=== PATIENT | male | born 1945 | race Caucasian/White ===

== ENCOUNTER 2017-01-26 08:47 | Day surgery (SDC) | payer MEDICARE ==
[~2017-01-26 08:47] MED LIST: Buffered Lidocaine 0.9% SYRIN* 5 ML/SYR SYRINGE INTRADERM ONE; Buffered Lidocaine 0.9% SYRIN* 5 ML/SYR SYRINGE ONE; NS 0.9% 1000 ML* 1,000 ML IV SCH; ceFAZolin 2 GM PREMIX (*) 50 ML IVPB ONE
[2017-01-26] MEDS ORDERED: Midazolam* 1 MG/ML 2 ML VIAL (2 MG) ONE ×3 (09:25→11:03)
[2017-01-26] MEDS ORDERED: fentaNYL* 50 MCG/ML 2 ML VIAL (100 MCG VIAL) ONE (09:25)
[2017-01-26] MEDS ORDERED: Lidocaine 1% MPF wEPI 200,000* 30 ML SDV ONE (09:40)
[2017-01-26] MEDS ORDERED: Mineral Oil Sterile, TOPICAL* 25 ML BTL ONE (09:40)
[2017-01-26] MEDS ORDERED: Bupivacaine 0.25% SDV* 30 ML ONE (09:52)
[2017-01-26] MEDS ORDERED: Propofol* 10 MG/ML 20 ML BTL IV PUSH ONE (10:05)
[2017-01-26] MEDS ORDERED: Famotidine IV* 10 MG/ML 2 ML (20 mg) ONE (10:05)
[2017-01-26] MEDS ORDERED: Lidocaine 2% PF * 5 ML VIAL ONE (10:05)
[2017-01-26] MEDS ORDERED: KETAMINE HCL* 50 MG/ML 10 ML VIAL ONE (10:18)
[2017-01-26] MEDS ORDERED: Ondansetron INJ* 2 MG/ML VIAL IV PRN (11:05)
[2017-01-26] MEDS ORDERED: DiMENhydriNATE IV* 50 MG/ML VIAL IV PUSH PRN (11:05)
[2017-01-26] MEDS ORDERED: Acetaminophen TAB* 325 MG PO PRN (11:05)
[2017-01-26 13:10] VITALS: BP 127/69
== END 2017-01-26 13:10 | disposition home or self-care (01) ==
LOC: OR 08:47
PROVIDERS: ATTEND Plastic Surgery
DX: L57.0 Actinic keratosis (principal); F17.210 Nicotine dependence, cigarettes, uncomplicated; G91.2 (Idiopathic) normal pressure hydrocephalus; Z95.0 Presence of cardiac pacemaker; E11.9 Type 2 diabetes mellitus without complications; E03.9 Hypothyroidism, unspecified; Z79.84 Long term (current) use of oral hypoglycemic drugs; G47.33 Obstructive sleep apnea (adult) (pediatric); F41.9 Anxiety disorder, unspecified; Z85.828 Personal history of other malignant neoplasm of skin
CPT/HCPCS: 88305; 88331; 88332; A9270-GY; J0690; J2001; J2250; J2704; J3010

== ENCOUNTER 2017-10-07 00:09 | Observation (INO) | payer MEDICARE ==
[2017-10-07] MEDS ORDERED: Aspirin 81 mg CHEW TAB* 81 MG TAB.CHEW PO ONE ×2 (00:34→00:43)
[2017-10-07] MEDS ORDERED: NS 0.9% 1000 ML* 1,000 ML IV ONE (00:34)
[2017-10-07] MEDS ORDERED: Metoprolol Tartrate IV* 1 MG/ML 5 ML VIAL IV ONE (00:34)
[2017-10-07] MEDS ORDERED: predniSONE TAB* 20 MG PO ONE (00:43)
[2017-10-07] MEDS ORDERED: Albuterol/Ipratropium NEB.SOL* Albuterol 2.5 MG/Ipratropium 0.5 MG 3 ML INH ONE (00:43)
[2017-10-07 01:06] LABS: ABS Basophils 0.2 10^3/ul (0-0.2); ABS Eosinophils 0.2 10^3/ul (0-0.6); ABS Lymphocytes 2.7 10^3/ul (1.0-4.8); ABS Monocytes 1.2 10^3/ul (0-0.8); ABS Neutrophils 12.6 10^3/ul (1.5-7.7); ABS Nucleated RBC 0 10^3/ul; Eosinophil % 1.1 % (0-6); Hematocrit 45 % (42-52); Hemoglobin 15.2 g/dl (14.0-18.0); Mean Corpuscular HGB Conc 34 g/dl (31-36); Mean Corpuscular Hemoglobin 30 pg (27-31); Mean Corpuscular Volume 89 fL (80-94); Mean Platelet Volume 11.1 um3 (7.4-10.4); Nucleated Red Blood Cells % 0.2; Platelet Count 137 10^3/ul (150-450); Red Blood Count 5.01 10^6/ul (4.0-5.4); Red Cell Distribution Width 13 % (10.5-15); White Blood Count 16.8 10^3/ul (3.5-10.8)
[2017-10-07 01:07] LABS: INR 1.08 (0.77-1.02)
[2017-10-07] MEDS ORDERED: Levofloxacin 750 MG IVPREMIX(* 750 MG/150 ML BAG IVPB ONE (02:26)
[2017-10-07] MEDS ORDERED: Morphine ORAL.SOLN 10 mg* 2 MG/ML UDC 5 ml PO PRN (03:46)
--- NOTE | 2017-10-07 04:44 | ED ---
Feroz Whitaker Jennifer, scribed for Cristobal Cuenca MD on 10/07/17 at 0044 . HPI Chest Pain - HPI Summary HPI Summary: The patient is a 72 year old male who presents with chest pain that began about 3 hours ago. Patient reports the pain is located mid sternal and began when he was just watching TV. He describes it as a tightness and sharp pain that is aggravated by deep breaths. He thought it was indigestion at first but denies reflux. He denies pain in back, neck, and arm, cough, and fever. 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 - History of Current Complaint Chief Complaint: EDChestWallPain Time Seen by Provider: 10/07/17 00:32 Hx Obtained From: Patient Onset/Duration: Started Hours Ago - 3 hours, Still Present, Worse Since Timing: Constant Initial Severity: Moderate Current Severity: Moderate Pain Intensity: 7 Pain Scale Used: 0-10 Numeric Chest Pain Location: Mid Sternal Chest Pain Radiates: No Character: Sharp/Stabbing, Tightness Aggravating Factor(s): Deep Breaths Alleviating Factor(s): Nothing Associated Signs and Symptoms: Positive: Other: - chest pain. NEGATIVE: pain in back, neck, arm, and cough and fever - Additional Pertinent History Primary Care Physician: [id number] - Allergy/Home Medications Allergies/Adverse Reactions: Allergies Allergy/AdvReac Type Severity Reaction Status Date / Time No Known Allergies Allergy Verified 01/26/17 09:07 PMH/Surg Hx/FS Hx/Imm Hx Endocrine/Hematology History: Reports: Hx Diabetes - oral med, Hx Thyroid Disease - partial thyroidectomy 1994 Cardiovascular History: Reports: Hx Hypertension, Hx Pacemaker/ICD - dr lopez seen last week of december 2016 Denies: Hx Angina Respiratory History: Reports: Hx Chronic Obstructive Pulmonary Disease (COPD), Hx Pneumonia, Hx Seasonal Allergies, Hx Sleep Apnea - no cpap GI History: Reports: Hx Gastroesophageal Reflux Disease, Other GI Disorders - frequent diarrhea History: Reports: Other Problems/Disorders - hx bladder cancer Musculoskeletal History: Reports: Hx Arthritis - 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 tonsillectomy as a child. cystoscopy for bladder cancer 1999. partial thyroidectomy 1994 - . pacemaker placement 1990 Hx Anesthesia Reactions: No - Immunization History Date of Tetanus Vaccine: up to date Date of Influenza Vaccine: 2014 Infectious Disease History: No Infectious Disease History: Reports: Hx Hepatitis - hx hep A & B, Hx Shingles Denies: Hx Human Immunodeficiency Virus (HIV), Traveled Outside the [place] in Last 30 Days - Family History Known Family History: Positive: Cardiac Disease, Other - colon cancer - Social History Alcohol Use: None Substance Use Type: Reports: None Hx Tobacco Use: Yes - 2 packs per week Smoking Status (MU): Light Every Day Tobacco Smoker Type: Cigarettes Amount Used/How Often: 1 pack per week for 45 years Length of Time of Smoking/Using Tobacco: 48 years, stopped from [id number] Have You Smoked in the Last Year: Yes Review of Systems Negative: Fever Positive: Chest Pain Negative: Cough Positive: Myalgia - pain in back, neck, arm All Other Systems Reviewed And Are Negative: Yes Physical Exam - Summary Physical Exam Summary: Appearance: Well appearing, no pain distress Skin: warm, dry, reflects adequate perfusion Head/face: scar on scalp, shunt in scalp Eyes: EOMI, HARRIET ENT: dry mucous membranes Neck: supple, non-tender, suprasternal scar, no JVD Respiratory: Diffuse heavy wheezes, tachypnea, breath sounds present Cardiovascular: pacemaker in right chest, RRR, pulses symmetrical Abdomen: non-tender, soft Bowel Sounds: present Musculoskeletal: normal, strength/ROM intact, no lower extremity edema Neuro: normal, sensory motor intact, A&Ox3 Triage Information Reviewed: Yes Vital Signs On Initial Exam: Initial Vitals Temp Pulse Resp BP Pulse Ox 98.4 F 108 22 133/89 94 10/07/17 00:12 10/07/17 00:12 10/07/17 00:12 10/07/17 00:12 10/07/17 00:12 Vital Signs Reviewed: Yes Diagnostics - Vital Signs Vital Signs Temp Pulse Resp BP Pulse Ox 10/07/17 00:22 96 96 10/07/17 00:20 98 174/88 94 10/07/17 00:12 98.4 F 108 22 133/89 94 - Laboratory Lab Results: Lab Results 10/07/17 10/07/17 10/07/17 Range/Units 00:54 00:54 00:54 WBC 16.8 H (3.5-10.8) 10^3/ul RBC 5.01 (4.0-5.4) 10^6/ul Hgb 15.2 (14.0-18.0) g/dl Hct 45 (42-52) % MCV 89 (80-94) fL MCH 30 (27-31) pg MCHC 34 (31-36) g/dl RDW 13 (10.5-15) % Plt Count 137 L (150-450) 10^3/ul MPV 11.1 H (7.4-10.4) um3 Neut % (Auto) 74.9 (38-83) % Lymph % (Auto) 16.0 L (25-47) % Bonner % (Auto) 7.1 H (0-7) % Eos % (Auto) 1.1 (0-6) % Baso % (Auto) 0.9 (0-2) % Absolute Neuts (auto) 12.6 H (1.5-7.7) 10^3/ul Absolute Lymphs (auto) 2.7 (1.0-4.8) 10^3/ul Absolute Monos (auto) 1.2 H (0-0.8) 10^3/ul Absolute Eos (auto) 0.2 (0-0.6) 10^3/ul Absolute Basos (auto) 0.2 (0-0.2) 10^3/ul Absolute Nucleated RBC 0 10^3/ul Nucleated RBC % 0.2 INR (Anticoag Therapy) 1.08 H (0.77-1.02) Sodium 135 L (139-145) mmol/L Potassium 3.9 (3.5-5.0) mmol/L Chloride 99 L (101-111) mmol/L Carbon Dioxide 26 (22-32) mmol/L Anion Gap 10 (2-11) mmol/L BUN 21 (6-24) mg/dL Creatinine 1.05 (0.67-1.17) mg/dL Est GFR ( Amer) 88.8 (>60) Est GFR (Non-Af Amer) 69.0 (>60) BUN/Creatinine Ratio 20.0 (8-20) Glucose 152 H (70-100) mg/dL Lactic Acid (0.5-2.0) mmol/L Calcium 9.4 (8.6-10.3) mg/dL Total Bilirubin 0.50 (0.2-1.0) mg/dL AST 19 (13-39) U/L ALT 17 (7-52) U/L Alkaline Phosphatase 75 (34-104) U/L Troponin I 0.03 (<0.04) ng/mL B-Natriuretic Peptide ( - 100) pg/mL Total Protein 7.8 (6.4-8.9) g/dL Albumin 4.2 (3.2-5.2) g/dL Globulin 3.6 (2-4) g/dL Albumin/Globulin Ratio 1.2 (1-3) Procalcitonin (<0.6) ng/mL 10/07/17 10/07/17 10/07/17 Range/Units 00:54 00:54 00:54 WBC (3.5-10.8) 10^3/ul RBC (4.0-5.4) 10^6/ul Hgb (14.0-18.0) g/dl Hct (42-52) % MCV (80-94) fL MCH (27-31) pg MCHC (31-36) g/dl RDW (10.5-15) % Plt Count (150-450) 10^3/ul MPV (7.4-10.4) um3 Neut % (Auto) (38-83) % Lymph % (Auto) (25-47) % Bonner % (Auto) (0-7) % Eos % (Auto) (0-6) % Baso % (Auto) (0-2) % Absolute Neuts (auto) (1.5-7.7) 10^3/ul Absolute Lymphs (auto) (1.0-4.8) 10^3/ul Absolute Monos (auto) (0-0.8) 10^3/ul Absolute Eos (auto) (0-0.6) 10^3/ul Absolute Basos (auto) (0-0.2) 10^3/ul Absolute Nucleated RBC 10^3/ul Nucleated RBC % INR (Anticoag Therapy) (0.77-1.02) Sodium (139-145) mmol/L Potassium (3.5-5.0) mmol/L Chloride (101-111) mmol/L Carbon Dioxide (22-32) mmol/L Anion Gap (2-11) mmol/L BUN (6-24) mg/dL Creatinine (0.67-1.17) mg/dL Est GFR ( Amer) (>60) Est GFR (Non-Af Amer) (>60) BUN/Creatinine Ratio (8-20) Glucose (70-100) mg/dL Lactic Acid 2.1 H* (0.5-2.0) mmol/L Calcium (8.6-10.3) mg/dL Total Bilirubin (0.2-1.0) mg/dL AST (13-39) U/L ALT (7-52) U/L Alkaline Phosphatase (34-104) U/L Troponin I (<0.04) ng/mL B-Natriuretic Peptide 58 ( - 100) pg/mL Total Protein (6.4-8.9) g/dL Albumin (3.2-5.2) g/dL Globulin (2-4) g/dL Albumin/Globulin Ratio (1-3) Procalcitonin < 0.1 (<0.6) ng/mL 10/07/17 Range/Units 03:33 WBC (3.5-10.8) 10^3/ul RBC (4.0-5.4) 10^6/ul Hgb (14.0-18.0) g/dl Hct (42-52) % MCV (80-94) fL MCH (27-31) pg MCHC (31-36) g/dl RDW (10.5-15) % Plt Count (150-450) 10^3/ul MPV (7.4-10.4) um3 Neut % (Auto) (38-83) % Lymph % (Auto) (25-47) % Bonner % (Auto) (0-7) % Eos % (Auto) (0-6) % Baso % (Auto) (0-2) % Absolute Neuts (auto) (1.5-7.7) 10^3/ul Absolute Lymphs (auto) (1.0-4.8) 10^3/ul Absolute Monos (auto) (0-0.8) 10^3/ul Absolute Eos (auto) (0-0.6) 10^3/ul Absolute Basos (auto) (0-0.2) 10^3/ul Absolute Nucleated RBC 10^3/ul Nucleated RBC % INR (Anticoag Therapy) (0.77-1.02) Sodium (139-145) mmol/L Potassium (3.5-5.0) mmol/L Chloride (101-111) mmol/L Carbon Dioxide (22-32) mmol/L Anion Gap (2-11) mmol/L BUN (6-24) mg/dL Creatinine (0.67-1.17) mg/dL Est GFR ( Amer) (>60) Est GFR (Non-Af Amer) (>60) BUN/Creatinine Ratio (8-20) Glucose (70-100) mg/dL Lactic Acid (0.5-2.0) mmol/L Calcium (8.6-10.3) mg/dL Total Bilirubin (0.2-1.0) mg/dL AST (13-39) U/L ALT (7-52) U/L Alkaline Phosphatase (34-104) U/L Troponin I 0.03 (<0.04) ng/mL B-Natriuretic Peptide ( - 100) pg/mL Total Protein (6.4-8.9) g/dL Albumin (3.2-5.2) g/dL Globulin (2-4) g/dL Albumin/Globulin Ratio (1-3) Procalcitonin (<0.6) ng/mL Result Diagrams: 10/07/17 00:54 10/07/17 00:54 Lab Statement: Any lab studies that have been ordered have been reviewed, and results considered in the medical decision making process. - EKG 0017 Cardiac Rate: Other Rate - Atrial sensed ventricularly paced rhythm at [address] Segment: Non-Specific EKG Interpretation: left axis deviation Re-Evaluation - Re-Evaluation First Eval Re-Evaluation Time: 02:26 Change: Improved Comment: His chest tightnes improved with breathing treatment, but he is still wheezing a little. Patient would like to stay longer. Chest Pain Course/Dx - Course Course Of Treatment: Patient presents with tightness across his anterior chest and difficulty breathing. Resting O2 sat on arrival was 90% on room air. Long- term smoker with diffuse wheezes throughout. Chest tightness improved significantly with breathing treatments and steroids. His wheezing continued but he was no longer hypoxic. Initial troponin is not elevated. EKG is nondiagnostic due to pacemaker. Heart rate has come down however. He still feels short of breath and has objective wheezing and so admission was choice disposition. IV antibiotics given. Hospitalist contacted and will admit the patient. - Chest Pain Differential Diagnosis/HQI/PQRI: Acute NM, ACS, Angina, GI Disease, Lower Respiratory Infection, Pulmonary Edema, Pulmonary Embolism, Other: - COPD exacerbation, hypoxia - Diagnoses Provider Diagnoses: COPD exacerbation, Atypical chest pain - Provider Notifications Discussed Care Of Patient With: Gabrielle Maya Time Discussed With Above Provider: 02:31 Instructed by Provider To: MD Will See In ED Discharge - Sign-Out/Discharge Documenting (check all that apply): Discharge/Admit/Transfer - Discharge Plan Condition: Fair Disposition: ADMITTED TO [facility] - Billing Disposition and Condition Condition: [facility] Disposition: [facility] [place] The documentation as recorded by the Feroz feldman Jennifer accurately reflects the service I personally performed and the decisions made by , Cristobal Cuenca MD.
[2017-10-07] MEDS ORDERED: Levothyroxine TAB* 137 MCG TAB PO SCH (06:00)
[2017-10-07] MEDS ORDERED: Omeprazole CAP* 20 MG PO SCH (07:30)
[2017-10-07] MEDS ORDERED: Enoxaparin(*) 40 MG/0.4 ML SYR SUBCUT SCH (07:30)
--- NOTE | 2017-10-07 07:53 | RAD ---
HISTORY: Chest pain COMPARISONS: February 28, 2016 VIEWS: 1: frontal portable view of the chest at 1:29 AM FINDINGS: LINES AND TUBES: None. CARDIOMEDIASTINAL SILHOUETTE: The cardiac silhouette is mildly enlarged. The cardiomediastinal silhouette is stable from previous examinations.. PLEURA: The costophrenic angles are sharp. No pleural abnormalities are noted. LUNG PARENCHYMA: The lungs are clear. ABDOMEN: The upper abdomen is clear. There is no subphrenic gas. BONES AND SOFT TISSUES: No bone or soft tissue abnormalities are noted. IMPRESSION: MILD CARDIOMEGALY. NO ACTIVE CARDIOPULMONARY DISEASE.
[2017-10-07] MEDS: Albuterol 2.5 MG/3 ML NEB.SOL* (0.083%) INH SCH ×2 (08:28→11:43)
[2017-10-07] MEDS ORDERED: Venlafaxine EXT RELEASE CAP* 75 MG PO SCH (09:00)
[2017-10-07] MEDS ORDERED: Tamsulosin CAP* 0.4 MG PO SCH (09:00)
[2017-10-07] MEDS ORDERED: Atorvastatin* 20 MG TAB PO SCH (09:00)
[2017-10-07] MEDS ORDERED: BuPROPion XL* 300 MG TAB.XL PO SCH (09:00)
--- NOTE | 2017-10-07 09:34 | HP ---
CC: Dr. Armas* HISTORY AND PHYSICAL: DATE OF ADMISSION: 10/07/17 PRIMARY CARE PROVIDER: Dr. Armas. CHIEF COMPLAINT: Chest pain. HISTORY OF PRESENT ILLNESS: Mr. Milian is a 72-year-old male, a long-term smoker, who also has a history of NPH, status post SORT SUPERVISOR shunt placement; COPD; hypothyroidism; depression; BPH, who was seen today in the emergency room for complaints of chest pain. The patient states at approximately 9:00 p.m. on the night prior to admission, he developed severe centrally located chest pain. He states he has had chest pain in the past and has gone away on its own. So, he rested at home. The pain did not go away and in fact worsened. The pain now is almost completely gone. He describes the pain as being in the center of his chest. He states it also hurts to take a deep breath. Denies any cough or sputum production. He denies any sweats or associated nausea. He denies any recent sick contacts, fevers, or chills. PAST MEDICAL HISTORY: 1. Pacemaker for third-degree heart block. 2. OA. 3. NPH, status post SORT SUPERVISOR shunt. 4. Hepatitis A and B in the past. He is unclear if he has been treated in the past. 5. BPH. 6. COPD. 7. GERD. 8. Hypothyroidism. 9. Depression. 10. Spinal stenosis. PAST SURGICAL HISTORY: 1. Mohs surgery x2 on the scalp. 2. SORT SUPERVISOR shunt. 3. TURBT. 4. Permanent pacemaker. 5. Partial thyroidectomy for benign tumor. 6. Tonsillectomy. MEDICATIONS: 1. Spironolactone 25 mg p.o. Wednesday, Wednesday, and Wednesday. 2. Flomax 0.4 mg p.o. daily. 3. Morphine 15 mg p.o. t.i.d. p.r.n. pain. 4. Bupropion XL 300 mg p.o. daily. 5. Lipitor 20 mg p.o. daily. 6. Levothyroxine 137 mcg p.o. daily. 7. Prevacid 30 mg p.o. q.h.s. 8. Clonazepam 0.5 mg p.o. q.h.s. 9. Venlafaxine ER 300 mg p.o. daily. ALLERGIES: No known drug allergies. FAMILY HISTORY: Mom of colon cancer. Dad of myasthenia gravis. SOCIAL HISTORY: The patient is a long-term smoker of at least one-half pack per day for the last 55 years or so. He denies any alcohol use. Denies any illicit drug use. He is a retired realtor. He is not . He has no children. He indicates that his friend, Lizeth Herrera, would be his healthcare proxy. REVIEW OF SYSTEMS: A complete 11-system review of systems is obtained. Pertinent positives and negatives are as per HPI and otherwise negative. PHYSICAL EXAMINATION GENERAL: The patient is a well-developed, elderly male, seen sitting up in the bed, eating a turkey sandwich, in no acute distress. VITAL SIGNS: Blood pressure 148/72, pulse 94, respirations 22, temp 98.4, O2 sat 91% on 2 L. HEENT: Pupils are equal and round. Extraocular muscles are intact. Oropharynx is clear. Oral mucosa is moist. There is no submandibular, cervical , or supraclavicular adenopathy. PULMONARY: Lungs are clear with few bibasilar crackles. Breath sounds are mildly diminished throughout. CARDIAC: Normal S1, S2. Regular rate and rhythm. I do not appreciate any murmurs. ABDOMEN: Bowel sounds are present. Abdomen is soft, nontender, nondistended. MUSCULOSKELETAL: There is no cyanosis or clubbing of the digits. There is full active range of motion of all 4 extremities. NEURO: Cranial nerves II through XII are grossly intact. Sensation is intact to light touch throughout. Strength is 5/5 and symmetric, both upper and lower extremities bilaterally. PSYCH: The patient is alert. He is oriented x3. Affect appears appropriate. SKIN: Warm and dry. There are no rashes. The patient does have significant varicose veins to the bilateral lower extremities. DIAGNOSTIC STUDIES/LAB DATA: WBC 16.8, hemoglobin 15.2, hematocrit 44, platelets 137. INR 1.08. Sodium 135, potassium 3.9, chloride 99, CO2 26, BUN 21, creatinine 1.05, glucose 152, lactic acid 2.1, calcium 9.4. Bilirubin 0.5, AST 19, ALT 17, alk phos 75. Troponin 0.03. BNP 58. Albumin 4.2. Chest x-ray reveals low lung volumes, but appears generally clear to my interpretation. EKG reveals a paced rhythm. ASSESSMENT AND PLAN: Mr. Milian is a 72-year-old male with a history of chronic obstructive pulmonary disease with ongoing tobacco abuse, type 2 diabetes - diet controlled, gastroesophageal reflux disease, hypothyroidism, and depression, who presents to the emergency room with complaints of chest pain and is found to be borderline hypoxic. 1. Chest pain. The patient will be admitted and ruled out for an acute coronary syndrome, serial troponins. Chemical nuclear stress test has been ordered to evaluate for ischemia. 2. Probable chronic obstructive pulmonary disease exacerbation. The patient reportedly was diffusely wheezy on exam by the ER provider. I hear no wheezing at this point though he has received 2 nebulizer treatments and steroids. The patient is stating that he is feeling quite a bit better since initiating that therapy. The patient is not on any inhaler therapy for his diagnosis of chronic obstructive pulmonary disease. He will be started on nebulizer treatments every 4 hours while awake, prednisone 40 mg daily, and we will treat with Levaquin 500 mg p.o. daily. I will add a procalcitonin on to the labs drawn in the emergency room given his elevated white blood cell count of 16.8. 3. Benign prostatic hyperplasia. Continue Flomax. 4. Type 2 diabetes. We will continue diabetic diet. Most recent hemoglobin A1c was 6.4% in April 2017. 5. Hypothyroidism. The patient's most recent TSH in April 2017 was in good range. He will continue on his usual dose of Synthroid. 6. Normal pressure hydrocephalus. This is stable. 7. Depression. Continue bupropion and venlafaxine. 8. DVT prophylaxis. According to the Adult Thrombosis Prophylaxis Risk Factor Assessment Guide, the patient has a total risk factor score of 6 making him the highest risk. He will be placed on Lovenox 40 mg subcutaneous daily for his prophylaxis. 9. Code status is DNR. TIME SPENT: Sixty-five minutes was spent admitting this patient. [id number]/[facility] #: [id number] KAYLA
[2017-10-07] MEDS ORDERED: Regadenoson* 0.4 MG/5 ML SYRINGE ONE (09:51)
[2017-10-07] MEDS ORDERED: Aminophylline IV* 25 MG/ML 10 ML VIAL ONE (10:02)
--- NOTE | 2017-10-07 11:10 | PN ---
Subjective Date of Service: 10/07/17 Interval History: Mr. Milian reports feeling much better today. He denies chest pain. He feels that his breathing may be a bit more labored than usual but does not impede his activity. He is tolerating oral intake well and denies nausea or abdominal pain. Objective Active Medications: Albuterol (Ventolin 2.5 Mg/3 Ml Neb.Karey*) 2.5 mg INH [id number] [facility]WAKE [facility] Atorvastatin Calcium (Lipitor*) 20 mg PO DAILY LEANN Bupropion HCl (Bupropion Xl*) 300 mg PO QAM [facility] Clonazepam (Klonopin Tab(*)) 0.5 mg PO QPM [facility] Enoxaparin Sodium (Lovenox(*)) 40 mg SUBCUT Q24H LEANN Levofloxacin (Levaquin Tab*) 500 mg PO Q24H [facility] Levothyroxine Sodium (Synthroid Tab*) 137 mcg PO QAM@0600 [facility] Morphine Sulfate (Morphine Oral.Soln 10 Mg*) 15 mg PO TID PRN Omeprazole (Prilosec Cap*) 20 mg PO DAILY@0730 [facility] Prednisone (Deltasone Tab*) 40 mg PO DAILY [facility] Spironolactone (Aldactone Tab*) 25 mg PO MOWEFR [facility] Tamsulosin HCl (Flomax Cap*) 0.4 mg PO DAILY [facility] Venlafaxine HCl (Effexor Xr Cap*) 300 mg PO QAM [facility] Vital Signs: Temp Pulse Resp BP Pulse Ox 97.9 F 87 16 149/68 95 10/07/17 07:37 10/07/17 08:30 10/07/17 08:30 10/07/17 07:37 10/07/17 08:30 Oxygen Devices in Use Now: None Appearance: Male sitting up in bed in lunch in NAD Eyes: No Scleral Icterus Ears/Nose/Mouth/Throat: Mucous Membranes Moist Neck: Trachea Midline Respiratory: Symmetrical Chest Expansion and Respiratory Effort, - - Expiratory wheezing bilaterally, good aeration Cardiovascular: NL Sounds; No Murmurs; No JVD, No Edema Abdominal: NL Sounds; No Tenderness; No Distention Extremities: No Edema Skin: No Rash or Ulcers Neurological: Alert and Oriented x 3, NL Muscle Strength and Tone Nutrition: Taking PO's Result Diagrams: 10/07/17 00:54 10/07/17 00:54 Additional Lab and Data: . Assess/Plan/Problems-Billing Assessment: Mr. Milian is a 72 yo M with a PMH of pacemaker for third degree heart block , smoking, NPH s/p GOVERNOR ASSEMBLER HYDRAULIC shunt, and COPD who was admitted on 10/07/17 with chest pain. - Patient Problems (1) Chest pain Comment: - Trop 0.03 x 3. EKG with paced rhythm. - Stress test high risk but not significantly changed from 2016. In 2016 he also had a cardiac cath showing no significant coronary artery disease. Reviewed case with Alberto Rueda who agrees and notes that patient can follow up with Dr. Ferreira outpatient for echocardiogram for better evaluation of EF ( EF lower on the stress test, but this is less reliable). Patient has no evidence of CHF. (2) COPD (chronic obstructive pulmonary disease) Comment: - Remains somewhat wheezy but not hypoxic - Continue prednisone, albuterol. - No evidence of pneumonia, stop levaquin. (3) Hypertension Comment: - SBP 140s. - Continue spironolactone. (4) CAD (coronary artery disease) Comment: - Continue atorvastatin. (5) Hypothyroidism Comment: - Continue levothyroxine. (6) Depression Comment: - Continue venlafexine, bupropion. - Continue clonazepam for anxiety. (7) Spinal stenosis SNOMED Code(s): 90522691 Comment: - Continue chronic morphine therapy (8) DVT prophylaxis Comment: - Lovenox. (9) DNR (do not resuscitate) Comment: Status and Disposition: OBV. Discharge to home.
--- NOTE | 2017-10-07 11:33 | RAD ---
Edited for charges. INDICATION: LEFT bundle branch block. Chest pain, shortness of breath, diabetic , obesity, tobacco use. COMPARISON: March 05, 2016 TECHNIQUE: 10.670 mCi of Tc-99m Myoview were administered IV. SPECT images of the heart were obtained. Later on the same day. Under the direction of Dr. Dominguez, the patient was given an IV injection of a pharmacologic stress agent. Subsequently, the patient was given an IV injection of 25.400 mCi Tc-99m Myoview. SPECT images of the heart were obtained and a gated wall motion study was performed. No CT for attenuation correction performed due to body habitus/range of motion of the arms. FINDINGS: Gated wall motion images were obtained at stress and demonstrate diffuse hypokinesia and akinesia at the apical and mid segments of the inferior wall. The calculated left ventricular ejection fraction is 30 % at stress. Estimated LEFT ventricular end diastolic volume is 107 mL. TID 0.95. Large fixed perfusion defect involving the inferior wall from the apex through the base with extension to involve the posterior aspect of the septum and lateral wall. No stress-induced reversible perfusion defects evident. IMPRESSION: 1. Severely decreased estimated LEFT ventricular ejection fraction of 30% decreased from 43% on the 2016 exam. Worsening of generalized hypokinesia compared with the 2016 exam. 2. 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 3. No stress-induced ischemia evident. ASSESSMENT: High risk based on nuclear portion. Based on imaging criteria from ACC/AHA 2002 Guideline Update for the Management of Patients With Chronic Stable Angina Table 23. Noninvasive Risk Stratification. MTDD
[2017-10-07] MEDS ORDERED: Albuterol 2.5 MG/3 ML NEB.SOL* (0.083%) INH PRN (11:47)
[2017-10-07 13:28] VITALS: BP 133/72
[2017-10-07] MEDS ORDERED: clonazePAM TAB(*) 0.5 MG PO SCH (18:00)
[2017-10-08] MEDS ORDERED: Levofloxacin TAB* 500 MG PO SCH (09:00)
[2017-10-08] MEDS ORDERED: Spironolactone TAB* 25 MG PO SCH (09:00)
[2017-10-08] MEDS ORDERED: predniSONE TAB* 20 MG PO SCH (09:00)
--- NOTE | 2017-10-08 13:33 | DS ---
AMENDED REPORT NOW INCLUDES COSIGNER DESIGNATION - ESIGNED BEFORE ADJUSTMENT CC: Dr. Armas * [facility] MEDICINE DISCHARGE SUMMARY: DATE OF ADMISSION: 10/07/17 DATE OF DISCHARGE: 10/07/17 PRIMARY CARE PROVIDER: Dr. Armas. ATTENDING PHYSICIAN: Dr. Isabela Glasgow * (dictation provided by Meme Reese NP ). PRIMARY DIAGNOSES: 1. Chronic obstructive pulmonary disease exacerbation. 2. Chest pain. SECONDARY DIAGNOSES: 1. Pacemaker for third-degree heart block. 2. Osteoarthritis. 3. Normal pressure hydrocephalus status post HAND BRAILLE TRANSCRIBER shunt. 4. History of hepatitis A and B in the past. 5. Benign prostatic hyperplasia. 6. Chronic obstructive pulmonary disease. 7. Gastroesophageal reflux disease. 8. Hypothyroidism. 9. Depression. 10. Spinal stenosis. 11. Non-ischemic cardiomyopathy. PAST SURGICAL HISTORY: Mohs surgery x2 on the scalp and HAND BRAILLE TRANSCRIBER shunt and TURP and permanent pacemaker, partial thyroidectomy for benign tumor and tonsillectomy. MEDICATIONS AT THE TIME OF DISCHARGE: 1. Prednisone 40 mg taper. 2. Albuterol 1 to 2 puffs q. 4 hours p.r.n. shortness of breath. 3. Spironolactone 25 mg p.o. Wednesday, Wednesday and Wednesday. 4. Flomax 0.4 mg p.o. daily. 5. Morphine 15 mg p.o. t.i.d. p.r.n. pain. 6. Bupropion XL 300 mg p.o. daily. 7. Lipitor 20 mg p.o. daily. 8. Levothyroxine 137 mcg p.o. daily. 9. Prevacid 30 mg p.o. q.h.s. 10. Clonazepam 0.5 mg p.o. q.h.s. 11. Venlafaxine ER 300 mg p.o. daily. HOSPITAL COURSE: Mr. Milian is a 72-year-old male with a past medical history of non-ischemic cardiomyopathy with pacemaker for third-degree heart block, who presented to the hospital with chest pain on 10/07/17, please see dictated H and P from Dr. Gabrielle Maya for complete details. In brief, the emergency room physicians reported that the patient was quite wheezy and responded well to nebulizer treatment as well as steroids. At the time of examination from the hospitalist team, the patient stated he was chest pain free Mr. Milian's workup included 3 troponins all of which were 0.03. His chest x-ray showed no acute process. His labs were remarkable only for white blood cell count of 16.8. His procalcitonin however was less than 0.1. Mr. Milian underwent a stress test today, which was read as follows: "Severely decreased estimated left ventricular ejection fraction of 30%, decreased from 43% on the 2016 exam, worsening of generalized hypokinesis compared with the 2016 exam, large infarct primarily involving the inferior wall with associated akinesis without significant change, no stress-induced ischemia is evident, high risk on nuclear portion." Because of this, I did review the record from 2016 when the patient was admitted, which showed that he had an abnormal stress test and went on for cardiac catheterization, which showed no significant coronary artery disease. I also reviewed the case with Dr. Dominguez who also reviewed the record and felt that this stress test was not a significant change from previous and that Mr. Milian, based on his negative workup, would be appropriate to follow up with Dr. Ferreira outpatient. It is suspected more likely than result of cardiac ischemia that the patient's chest discomfort was related to COPD exacerbation based on wheezing heard both at the time of admission and today. Despite the wheezing, the patient is not hypoxic and our plan will be to treat for COPD exacerbation with prednisone and albuterol. The patient is also instructed to follow up closely with Dr. Armas regarding possible addition of other inhalers for mild COPD. DISPOSITION: Home. DIET: Low fat, low salt. ACTIVITY: As tolerated. FOLLOWUP PLAN: 1. Please follow up with Dr. Armas in the next 1 to 2 weeks regarding COPD and chronic comorbidities. 2. Please follow up with Dr. Ferreira regarding non-ischemic cardiomyopathy and was suggested for echocardiogram outpatient. TIME SPENT: Approximately 60 minutes was spent on the discharge of this patient , more than half the time was spent with the patient at the bedside reviewing the events leading up to this hospitalization and during this hospitalization, performing the physical examination, and reviewing the plan of care. MEME REESE NP [id number]/[facility] #: [id number] KAYLA
== END 2017-10-07 15:16 | disposition home or self-care (01) ==
LOC: ED 00:09 → MEDTELE 03:40
PROVIDERS: ADMIT Hospitalist; ATTEND Internal Medicine
DX: J44.1 Chronic obstructive pulmonary disease with (acute) exacerbation (principal); R07.9 Chest pain, unspecified; Z95.0 Presence of cardiac pacemaker; M19.90 Unspecified osteoarthritis, unspecified site; G91.9 Hydrocephalus, unspecified; N40.0 Benign prostatic hyperplasia without lower urinary tract symptoms; K21.9 Gastro-esophageal reflux disease without esophagitis; E03.9 Hypothyroidism, unspecified; F32.9 Major depressive disorder, single episode, unspecified; I42.9 Cardiomyopathy, unspecified; Z79.899 Other long term (current) drug therapy; F17.210 Nicotine dependence, cigarettes, uncomplicated
CPT/HCPCS: 36415; 71045; 78452; 80053; 83605; 83880; 84145; 84484; 85025; 85610; 93005; 93017; 94640; 96365; 96372; 96375; 99285; 99406; A9270-GY; A9502; G0378; J0280; J1650; J2785; J3490; J7512

== ENCOUNTER 2023-10-04 12:21 | Inpatient (IN) ==
[2023-10-04 13:06] LABS: ABS Eosinophils 0.2 10^3/uL (0.0-0.5); ABS Lymphocytes 1.7 10^3/uL (1.0-4.8); ABS Monocytes 0.8 10^3/uL (0.0-1.1); ABS Neutrophils 6.1 10^3/uL (1.5-7.6); ABS Nucleated RBC 0.06 10^3/ul; Hematocrit 45.6 % (38-53); Hemoglobin 15.1 g/dL (13.2-16.3); Lymphocyte % 19.4 %; Mean Corpuscular Hemoglobin 26.5 pg (27-33); Mean Corpuscular Volume 80.1 fL (80-97); Mean Platelet Volume 10.4 fL (7.5-11.2); Nucleated Red Blood Cells % 0.7 %/100WBC (0.0-0.8); Platelet Count 162 10^3/uL (150-450); Red Cell Distribution Width 14.7 % (12-17); White Blood Count 8.8 10^3/uL (3.6-10.2)
[2023-10-04 13:27] LABS: Albumin 4.6 g/dL (3.2-5.2); Albumin/Globulin Ratio 1.4 (1-3); Calcium 9.9 mg/dL (8.6-10.3); Creatinine, Serum 0.89 mg/dL (0.67-1.17); Globulin 3.2 g/dL (2-4); Total Bilirubin 0.7 mg/dL (0.2-1.0); Total Protein 7.8 g/dL (6.4-8.9); eGFR CKD-EPI 86.6 (>60)
[2023-10-04 13:28] LABS: INR 1.09 (0.83-1.13)
[2023-10-04 14:43] LABS: High Sensitivity Troponin 1 Hr 25 pg/mL (<20)
[2023-10-04 15:40] LABS: C Reactive Protein 2.22 mg/L (<8.01); Phosphorus 3.3 mg/dL (2.5-5.0)
[2023-10-04 15:54] LABS: Urine Appearance Clear; Urine Bilirubin Negative (Negative); Urine Blood Negative (Negative); Urine Color Yellow; Urine Glucose 4+ (>=1000 mg/dL) (Negative); Urine Ketones 2+ (Negative); Urine Nitrite Negative (Negative); Urine Protein Negative (Negative); Urine Urobilinogen Negative (Negative); Urine pH 5.5 (5.0-8.0)
[2023-10-04] MEDS: Iodixanol (CONTRAST) 320 MG/ML 100 ML SDV IV ONE (18:01)
[2023-10-04] MEDS ORDERED: Al Hydrox/Mg Hydrox/Simet LIQ 30 ML UDC PO PRN (21:40)
[2023-10-04] MEDS ORDERED: Albuterol HFA INHALER 8 gm MDI INH PRN (22:54)
[2023-10-04] MEDS ORDERED: Naloxone Nasal Spray 4 MG/0.1 ML NASAL.SPR INTRANASAL PRN (23:01)
[2023-10-04] MEDS: Morphine ORAL.SOLN 10 mg 2 mg/ml UDC 5 ml (10 mg) PO PRN (23:41)
[2023-10-05] MEDS: DULoxetine DR 20 mg CAP PO SCH (08:27)
[2023-10-05] MEDS: Aspirin EC 81 mg TAB.EC (enteric coated) PO SCH (08:27)
[2023-10-05] MEDS: Empagliflozin 25 MG TAB PO SCH (08:28)
[2023-10-05] MEDS: Vitamin THERAPEUTIC TAB PO SCH (08:30)
[2023-10-05] MEDS ORDERED: COVID VAC 23-24(12+)(Moderna) SYR 0.5 ML IM ONE (09:00)
[2023-10-05 14:12] LABS: TSH Ultra Thyroid Stim Horm 1.12 mcIU/mL (0.34-5.60)
[2023-10-06 08:38] LABS: HDL Cholesterol 40.5 mg/dL
[2023-10-07 10:35] VITALS: BP 108/60
== END 2023-10-07 17:40 | disposition home or self-care (01) | DRG 885 ==
LOC: ED 12:21 → BSU 20:30
PROVIDERS: ADMIT Psychiatry & Neurology Psychiatry; ATTEND Psychiatry & Neurology Psychiatry

== ENCOUNTER 2024-02-19 15:02 | Inpatient (IN) ==
[2024-02-19 16:00] LABS: Hemoglobin 13.9 g/dL (13.2-16.3); Mean Corpuscular Hemoglobin 26.6 pg (27-33); Mean Corpuscular Hgb Conc 32.3 g/dL (31-36); Mean Corpuscular Volume 82.3 fL (80-97); Mean Platelet Volume 10.8 fL (7.5-11.2); Platelet Count 152 10^3/uL (150-450); Red Blood Count 5.23 10^6/uL (4.06-5.63); Red Cell Distribution Width 15.9 % (12-17); White Blood Count 12.5 10^3/uL (3.6-10.2)
[2024-02-19 16:22] LABS: INR 1.38 (0.85-1.14)
[2024-02-19 16:42] LABS: Albumin 3.9 g/dL (3.2-5.2); Albumin/Globulin Ratio 1.1 (1-3); C Reactive Protein 308.36 mg/L (<8.01); Calcium 9.2 mg/dL (8.6-10.3); Creatinine, Serum 1.04 mg/dL (0.67-1.17); Globulin 3.5 g/dL (2-4); Potassium 4.3 mmol/L (3.5-5.0); Total Bilirubin 0.9 mg/dL (0.2-1.0); Total Protein 7.4 g/dL (6.4-8.9); eGFR CKD-EPI 72.6 (>60)
[2024-02-19 16:58] LABS: ABS Basophils 0.1 10^3/uL (0.0-0.1); ABS Eosinophils 0.1 10^3/uL (0.0-0.5); ABS Lymphocytes 1.3 10^3/uL (1.0-4.8); ABS Monocytes 1.7 10^3/uL (0.0-1.1); ABS Neutrophils 9.3 10^3/uL (1.5-7.6); Eosinophil % 0.8 %; Lymphocyte % 10.3 %
[2024-02-19 17:37] LABS: High Sensitivity Troponin 1 Hr 28 pg/mL (<20)
[2024-02-19] MEDS: Iodixanol (CONTRAST) 320 MG/ML 100 ML SDV IV ONE (18:16)
[2024-02-19] MEDS: cefTRIAXone 1 gm/50 mL D5W 1 GM/50 ML BAG IV ONE (18:32)
[2024-02-19] MEDS: Lactated Ringers 1000 ml BAG 1,000 ML IV ONE (18:35)
[2024-02-19 19:09] LABS: Urine Appearance Clear; Urine Bilirubin Negative (Negative); Urine Blood Negative (Negative); Urine Color Yellow; Urine Glucose 4+ (>=1000 mg/dL) (Negative); Urine Ketones Negative (Negative); Urine Nitrite Negative (Negative); Urine Protein Negative (Negative); Urine Urobilinogen Negative (Negative); Urine pH 5.5 (5.0-8.0)
[2024-02-19] MEDS: Azithromycin 500 mg/250 ml NS 500 MG/250 ML BAG IVPB ONE (19:59)
[2024-02-19] MEDS ORDERED: Albuterol HFA INHALER 8 gm MDI INH PRN (23:56)
[2024-02-20] MEDS: Enoxaparin 40 MG/0.4 ML SYR SUBCUT SCH (01:01)
[2024-02-20] MEDS ORDERED: Dextrose 50% Syringe 50 ml 25 GM/50 ML SYRINGE IV PUSH PRN (03:30)
[2024-02-20] MEDS: DULoxetine DR 20 mg CAP PO SCH (07:41)
[2024-02-20] MEDS: Aspirin EC 81 mg TAB.EC (enteric coated) PO SCH (07:41)
[2024-02-20] MEDS: Empagliflozin 25 MG TAB PO SCH (07:41)
[2024-02-20] MEDS: Buprenorp/Nalox 8-2 MG SL TAB SL SCH (07:41)
[2024-02-20] MEDS: Buprenorp/Nalox 2-0.5 mg SL TB SL SCH (07:41)
[2024-02-20 08:50] LABS: Hematocrit 38.3 % (38-53); Hemoglobin 12.6 g/dL (13.2-16.3); Mean Corpuscular Hemoglobin 27.1 pg (27-33); Mean Corpuscular Volume 82.2 fL (80-97); Mean Platelet Volume 11.2 fL (7.5-11.2); Platelet Count 130 10^3/uL (150-450); Red Blood Count 4.66 10^6/uL (4.06-5.63); Red Cell Distribution Width 16.3 % (12-17); White Blood Count 10.8 10^3/uL (3.6-10.2)
[2024-02-20 09:12] LABS: ABS Basophils 0.1 10^3/uL (0.0-0.1); ABS Eosinophils 0.2 10^3/uL (0.0-0.5); ABS Lymphocytes 2.2 10^3/uL (1.0-4.8); ABS Monocytes 1.8 10^3/uL (0.0-1.1); ABS Neutrophils 6.5 10^3/uL (1.5-7.6); ABS Nucleated RBC 0.01 10^3/ul; Eosinophil % 2.1 %; Lymphocyte % 20.6 %; Nucleated Red Blood Cells % 0.1 %/100WBC (0.0-0.8)
[2024-02-20 09:44] LABS: Magnesium 1.9 mg/dL (1.9-2.7)
[2024-02-20] MEDS: CMCS: Epleronone 25 mg TAB (NF) PO SCH (10:56)
[2024-02-20] MEDS: CMCS: FLUTICAS/UMECLI/VILANT 100-62.5-25 MDI (NF) INH SCH (16:41)
[2024-02-20] MEDS: cefTRIAXone 2 gm/50 mL D5W 2 GM/50 ML BAG IV SCH (16:53)
[2024-02-20] MEDS: Azithromycin 500 mg/250 ml NS 500 MG/250 ML BAG IVPB SCH (20:47)
[2024-02-21] MEDS: guaiFENesin 100 mg/5 ml LIQ unit dose cup PO PRN (16:57)
[2024-02-23 09:35] VITALS: BP 114/74
[2024-02-23 14:24] LABS: Mycoplasma pneumoniae IgG Ab Negative (Negative); Mycoplasma pneumoniae IgM Ab Negative (Negative)
== END 2024-02-23 11:45 | disposition home or self-care (01) | DRG 871 ==
LOC: ED 15:02 → EDHOLD 15:02 → OBSVTOIN 20:40 → SUATTDRO 20:40 → MEDTELE 22:49
PROVIDERS: ADMIT Internal Medicine; ATTEND Internal Medicine